=== PATIENT | male | born 1965 | race Caucasian/White ===

== ENCOUNTER 2020-10-28 23:40 | Emergency (ER) | payer BC, SELFPAY ==
--- NOTE | ~2020-10-28 | CT_ITS ---
EXAMINATION: CTA brain carotid DATE: 10/29/2020 00:45 INDICATION: Left-sided headache. Slurred speech. TECHNIQUE: Computed tomographic angiography (CTA) of the head was performed without and with 100 mL O mnipaque-350 intravenous contrast. CTA of the neck was performed with intravenous contrast. Automated exposure control and iterative reconstruction technique were employed. The dose-length product was 1 847.84 mGy-cm. Maximum intensity projection and volume rendered 3D-reconstructions were created by sary pate technologist on a separate workstation. COMPARISON: None. FINDINGS: HEAD CTA: There is an acute intraparenchymal hematoma in left temporal lobe with surrounding vasogeni c edema. There is no acute ischemic infarct. The ventricles are normal in size. There is mild mucosal thickening in the ethmoid sinuses. The mastoid air cells are normal. The orbits are normal. The vert ebral arteries are codominant. There is no significant stenosis of basilar artery or the posterior ce rebral arteries. There is no significant stenosis of the intracranial internal carotid arteries or an terior or middle cerebral arteries. Anterior communicating artery is normal. The posterior communicat ing arteries are normal. There is no aneurysm. NECK CTA: There is a 2.7 cm nodule in left thyroid lobe. There are no pathologically enlarged lymph n odes. There is no significant stenosis of the vertebral arteries. There is mild plaque in the proxima l internal carotid arteries with 0% stenosis relative to normal distal artery lumen diameters. There is mild cervical spondylosis. IMPRESSION: 1. Acute intraparenchymal hematoma in left temporal lobe. 2. No aneurysm, arteriovenous malformation, or significant intracranial arterial stenosis. 3. 0% stenosis of the proximal internal carotid arteries relative to normal distal artery lumen diame ters (NASCET criteria). 3. 2.7 cm left thyroid nodule. Thyroid ultrasound is recommended. Reviewed, dictated and finalized at location A. BING MACHINE CORDER IMPRESSION: 1. Acute intraparenchymal hematoma in left temporal lobe. 2. No aneurysm, arteriovenous malformation, or significant intracranial arteria l stenosis. 3. 0% stenosis of the proximal internal carotid arteries relative to normal dis nikunj artery lumen diameters (NASCET criteria). 3. 2.7 cm left thyroid nodule. Thyroid ultrasound is recommended.
[2020-10-28 23:49] VITALS: BP 145/93; PULSE 83; RESP 20; TEMP 36.9; O2SAT 97
[2020-10-29 00:14] LABS: Basophils Percent Auto 0.4 % (0.2-1.2); Eosinophils Absolute Auto 0.2 K/mm3 (0-0.3); Eosinophils Percent Auto 2.2 % (0-4.4); Hemoglobin 15.3 g/dL (14.0-18.0); Immature Granulocyte Absolute 0.01 K/mm3 (0.00-0.031); Immature Granulocyte Percent A 0.1 % (0-0.5); Lymphocytes Absolute Auto 2.84 K/mm3 (0.9-3.2); Lymphocytes Percent Auto 34.5 % (18.3-44.2); Mean Corpuscular HGB Conc 34.8 g/dl (32-36); Mean Corpuscular Hemoglobin 29.9 pg (26-34); Mean Corpuscular Volume 86.1 fl (80-100); Mean Platelet Volume 11.5 fl (7.4-10.4); Monocytes Absolute Auto 0.7 K/mm3 (0.1-0.6); Monocytes Percent Auto 8.6 % (2.6-8.5); Neutrophils Absolute Auto 4.5 K/mm3 (1.3-6.7); Neutrophils Percent Auto 54.2 % (45.5-73.1); Platelet Count Result 234 k/mm3 (150-375); Red Blood Count 5.11 M/mm3 (4.6-6.20); White Blood Count 8.2 K/mm3 (4.5-10.0)
[2020-10-29] MEDS: SODIUM CHLORIDE 0.9% IV 1,000 ML 999 ML IV CONT (00:16)
[2020-10-29] MEDS: diphenhydrAMINE HCl INJ 50 MG/ML VIAL IV PUSH (00:16)
[2020-10-29] MEDS: METOCLOPRAMIDE HCL INJ 10 MG/2 ML VIAL IV PUSH (00:16)
[2020-10-29 00:26] LABS: Alanine Aminotransferase 23 U/L (4-50); Alkaline Phosphatase 59 U/L (38-126); Anion Gap 9 mmol/L (8-16); Aspartate Amino Transferase 21 U/L (17-59); Bilirubin,Total 0.3 mg/dL (0.2-1.3); Blood Urea Nitrogen 18 mg/dL (9-20); Calcium 9.3 mg/dL (8.4-10.2); Carbon Dioxide 28 mmol/L (22-30); Chloride 101 mmol/L (98-107); Estimated CRCL calculation 94 ml/min; Estimated Glomerular Filt Rate > 60; Glucose 142 mg/dL (75-110); Potassium 3.7 mmol/L (3.4-5.0); Sodium 138 mmol/L (137-145)
--- NOTE | 2020-10-29 00:45 | ED.GENADULT ---
HPI - General Adult General Chief complaint: Headache Stated complaint: left sided headache, confusion, Time Seen by Provider: 10/28/20 23:44 History of Present Illness HPI narrative: Patient is a 54-year-old gentleman who presents emergency department with chief complaint of headache. Per the patient's the patient has been complaining of a headache this week and has noticed that occasionally he is having some garbled speech and repeating himself at times. They were concerned that he may have COVID-19 and he was swabbed for COVID-19 as an outpatient and had a negative test that resulted after that they were concerned that this may be something else and decided to bring the patient to the emergency department tonight it is primarily because they were asking the patient to follow directions and he was not quite following exactly what they were telling him whenever he was asked to cross his leg. Patient reports that he thinks this is may be secondary to him taking a lot of Mucinex because he has had a headache. Patient denies being on any anticoagulants denies head trauma. Related Data Home Medications Medication Instructions Recorded Confirmed omeprazole 40 mg PO DAILY 10/04/19 10/09/19 fluoxetine 20 mg PO DAILY 10/09/19 10/14/19 Allergies Allergy/AdvReac Type Severity Reaction Status Date / Time Sulfa (Sulfonamide Allergy Severe TEMPORARILY Verified 10/14/19 11:36 Antibiotics) LOST VISION sulfanilamide Allergy Unknown TEMP LOSS Verified 10/14/19 11:36 OF VISION WITH SULFA EYE MEDS Review of Systems Review of Systems: Narrative: CONSTITUTIONAL: Denies fever, chills, or sweats. EYES: Denies visual changes, redness, or discharge. ENT: Denies rhinorrhea, congestion, sore throat, or otalgia. CARDIOVASCULAR: Denies chest pain, palpitations, or edema. RESPIRATORY: Denies cough or dyspnea. GASTROINTESTINAL: Denies abdominal pain, nausea, vomiting, or diarrhea. GENITOURINARY: Denies dysuria or hematuria. SKIN: Denies rash or itching. MUSCULOSKELETAL: Denies back pain, joint pain, or myalgia. NEUROLOGIC: Denies headache, numbness, or weakness. PSYCHIATRIC: Denies anxiety or depression. A 10 system review of systems was completed on the patient and is negative except for what is stated in the HPI. Nursing and ancillary documentation was reviewed. [facility] Past Medical History Medical History Anxiety GERD (gastroesophageal reflux disease) Surgical History Surgical History Hx of arthroscopy of left knee Hx of esophagogastroduodenoscopy Hx of hemorrhoidectomy Hx of repair of right rotator cuff Hx of sinus surgery Hx of tonsillectomy Family History Family History Mother Lung cancer Grandparent Malignant neoplasm of prostate Other Hypertension Social History Social History Smoking status: Never smoker Alcohol intake: never Substance use: never Gender identity (if verbalized by the patient): Male Exam Narrative: Exam Narrative: GENERAL: Well-appearing, well-nourished, and in no acute distress. HEAD: Normocephalic, atraumatic. EYES: PERRLA and EOMI. ENT: Nares clear, no rhinorrhea or epistaxis. Mucous membranes moist. NECK: Supple. CHEST: Clear to auscultation. No respiratory distress. HEART: Regular rate and rhythm. No murmur heard. Normal peripheral pulses. ABDOMEN: Soft, nontender, nondistended, normal active bowel sounds. EXTREMITIES: Normal range of motion. No edema. SKIN: Warm, dry, no rash. NEURO: No focal deficits. Alert and oriented x3. PSYCH: Normal mood and affect. Course Course Emergency Course: CT had showed evidence of a 3.5 x 1.8 x 4.8 cm parenchymal hemorrhage in the left temporal lobe Given the findings of the CT t
[2020-10-29 00:52] VITALS: BP 133/79; PULSE 67; RESP 18; O2SAT 98
[2020-10-29 01:42] VITALS: BP 127/83; PULSE 58; RESP 18; O2SAT 100
--- NOTE | 2020-10-29 01:43 | PC.NURSE ---
pending transfer to [facility].
== END 2020-10-29 02:35 | disposition short-term general hospital (02) ==
PROVIDERS: Emergency Provider Emergency Medicine; PCP Emergency Medicine
DX: I61.8 Other nontraumatic intracerebral hemorrhage (principal); R51.9 Headache, unspecified; F41.9 Anxiety disorder, unspecified; K21.9 Gastro-esophageal reflux disease without esophagitis
CPT/HCPCS: 36415; 70496; 70498; 80053; 85025; 96361; 96374; 96375; 99291; J1200; J2765; J7030; Q9967

== ENCOUNTER 2021-01-25 12:49 | Outpatient (CLI) | payer BC, SELFPAY ==
--- NOTE | ~2021-01-25 | XR_ITS ---
XR sacroiliac joints min 3V DATE: 01/25/2021 13:15 INDICATION: Pelvic and sacroiliac pain TECHNIQUE: AP and bilateral oblique views COMPARISON: None FINDINGS: No fracture or dislocation or ankylosis at the sacroiliac joints. IMPRESSION: No significant abnormality of the sacroiliac joints Reviewed, dictated and finalized at Location [facility]. Reviewed, dictated and finalized at location A.
--- NOTE | ~2021-01-25 | XR_ITS ---
XR pelvis 1-2V DATE: 01/25/2021 13:15 INDICATION: Pelvic pain TECHNIQUE: AP view COMPARISON: None FINDINGS: No pelvic fracture or bone destruction. The pubic symphysis and sacroiliac joints are intac t. Mild left hip osteoarthritis.. IMPRESSION: No significant pelvic abnormality Reviewed, dictated and finalized at location A.
== END 2021-01-25 12:50 | disposition home or self-care (01) ==
LOC: ANHIMG 12:52
PROVIDERS: PCP Emergency Medicine; Visit Provider Physician Assistant Medical
DX: M25.59 Pain in other specified joint (principal)
CPT/HCPCS: 72170; 72202

== ENCOUNTER 2021-10-07 15:42 | Emergency (ER) | payer BC, SELFPAY ==
--- NOTE | ~2021-10-07 | XR_ITS ---
EXAMINATION: XR chest 1V portable 10/07/2021 16:15 INDICATION: Suspected CVA. Headache. Visual changes. PROCEDURE: AP portable chest COMPARISON: 07/10/2009 FINDINGS: The lungs are clear. The cardiomediastinal silhouette is within normal limits. There are no pleural effusions. There is no pneumothorax suspected. IMPRESSION: 1: NO ACUTE CARDIOPULMONARY DISEASE. Reviewed, dictated and finalized at location A. ORK CONTROL TECHNICIAN
--- NOTE | ~2021-10-07 | CT_ITS ---
EXAMINATION: CT brain wo con DATE: 10/07/2021 16:25 INDICATION: CVA. Headache. Previous intracranial hemorrhage. TECHNIQUE: Computed tomography (CT) of the head was performed without intravenous contrast. The dose- length product was 605.33 mGy-cm. Automated exposure control and iterative reconstruction technique w ere employed. COMPARISON: CT dated 10/29/2020 FINDINGS: There is chronic infarction of the left parietal lobe with encephalomalacia. No acute intra cranial hemorrhage, infarction, mass or mass effect. No ventriculomegaly or midline shift. Basilar ci sterns are patent. There is craniotomy defect of the left parietal skull. Paranasal sinuses and masto ids are pneumatized. IMPRESSION: 1. 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 2: No acute intracranial abnormality. Reviewed, dictated and finalized at location A. L CASKET ASSEMBLER
--- NOTE | 2021-10-07 16:03 | ECG_ITS ---
Measurements Intervals [place] Rate: 85 P: 43 [place]: 156 QRS: -4 QRSD: 106 T: 31 QT: 348 QTc: 415 Interpretive Statements SINUS RHYTHM BASELINE ARTIFACT- I, II, III, AVR, AVL, AVF, V3-V6 NORMAL ECG Electronically Signed On 10-07-2021 22:01:03 CANAL DRIVER by Matt Morton D.O.
[2021-10-07 16:04] VITALS: BP 132/92; PULSE 79; RESP 16; TEMP 36.8; O2SAT 100
[2021-10-07 16:05] VITALS: BP 122/87; PULSE 65; RESP 16; O2SAT 98
[2021-10-07 16:08] LABS: Glucose Point of Care 128 mg/dl (65-105)
[2021-10-07] MEDS: SODIUM CHLORIDE 0.9% IV 1,000 ML 999 ML IV CONT (16:23)
[2021-10-07 16:31] LABS: Basophils Percent Auto 0.3 % (0.2-1.2); Eosinophils Percent Auto 0.3 % (0-4.4); Hematocrit 42.4 % (42.0-52.0); Hemoglobin 14.8 g/dL (14.0-18.0); Immature Granulocyte Absolute 0.04 K/mm3 (0.00-0.031); Immature Granulocyte Percent A 0.4 % (0-0.5); Lymphocytes Absolute Auto 1.64 K/mm3 (0.9-3.2); Lymphocytes Percent Auto 17.6 % (18.3-44.2); Mean Corpuscular HGB Conc 34.9 g/dl (32-36); Mean Corpuscular Volume 88.9 fl (80-100); Mean Platelet Volume 12.4 fl (7.4-10.4); Monocytes Absolute Auto 0.5 K/mm3 (0.1-0.6); Monocytes Percent Auto 5.3 % (2.6-8.5); Neutrophils Absolute Auto 7.1 K/mm3 (1.3-6.7); Neutrophils Percent Auto 76.1 % (45.5-73.1); Platelet Count Result 202 k/mm3 (150-375); Red Blood Count 4.77 M/mm3 (4.6-6.20); Red Cell Distribution Width 12.4 % (11.5-14.5); White Blood Count 9.3 K/mm3 (4.5-10.0)
--- NOTE | 2021-10-07 16:35 | ED.NEUROSD ---
HPI - Neuro Symptoms/Deficit General Chief Complaint: Suspected CVA Stated Complaint: ?CVA Time Seen by Provider: 10/07/21 16:04 Source: patient History of Present Illness HPI Narrative: Patient presents with headache blurry vision. Headache started approximately an hour and a half ago there are no clear aggravating or relieving factors there is no radiation. Reports left upper extremity weakness however that is been present for years. 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 Related Data Home Medications Medication Instructions Recorded Confirmed omeprazole 40 mg PO DAILY 10/04/19 10/09/19 fluoxetine 20 mg PO DAILY 10/09/19 10/14/19 irbesartan mg 10/07/21 Allergies Allergy/AdvReac Type Severity Reaction Status Date / Time Sulfa (Sulfonamide Allergy Severe TEMPORARILY Verified 10/14/19 11:36 Antibiotics) LOST VISION sulfanilamide Allergy Unknown TEMP LOSS Verified 10/14/19 11:36 OF VISION WITH SULFA EYE MEDS Review of Systems Review of Systems: CONSTITUTIONAL: Denies fever, chills, or sweats. EYES: Denies visual changes, redness, or discharge. ENT: Denies rhinorrhea, congestion, sore throat, or otalgia. CARDIOVASCULAR: Denies chest pain, palpitations, or edema. RESPIRATORY: Denies cough or dyspnea. GASTROINTESTINAL: Denies abdominal pain, nausea, vomiting, or diarrhea. GENITOURINARY: Denies dysuria or hematuria. SKIN: Denies rash or itching. MUSCULOSKELETAL: Denies back pain, joint pain, or myalgia. NEUROLOGIC: Denies dizziness PSYCHIATRIC: Denies anxiety or depression. All systems reviewed & are unremarkable except as noted in HPI and below PMFSH Past Medical History Medical History Anxiety GERD (gastroesophageal reflux disease) Surgical History Surgical History Hx of arthroscopy of left knee Hx of esophagogastroduodenoscopy Hx of hemorrhoidectomy Hx of repair of right rotator cuff Hx of sinus surgery Hx of tonsillectomy Family History Family History Mother Lung cancer Grandparent Malignant neoplasm of prostate Other Hypertension Social History Social History Smoking status: Never smoker Alcohol intake: never Substance use: never Gender identity (if verbalized by the patient): Male Exam Narrative: GENERAL: Well-appearing, well-nourished, and in no acute distress. HEAD: Normocephalic, atraumatic. EYES: PERRLA and EOMI. ENT: Nares clear, no rhinorrhea or epistaxis. Mucous membranes moist. NECK: Supple. No masses. No JVD CHEST: Clear to auscultation. No respiratory distress. No wheezes rales or rhonchi HEART: Regular rate and rhythm. No murmur heard. Normal peripheral pulses. ABDOMEN: Soft, nontender, nondistended, normal active bowel sounds. EXTREMITIES: Normal range of motion. No edema. SKIN: Warm, dry, no rash. NEURO: Cranial nerves II through XII are intact patient has 5 out of 5 strength in all extremities sensation intact to light touch in all extremities no pronator drift alert and oriented x3. PSYCH: Normal mood and affect. Course Reevaluation(s) Reevaluation #1: Patient is feeling much improved and I symptoms have nearly completely resolved. Patient gave additional history since his AVM pathology in October of last year he has had intermittent headaches and today's was more severe so they came to the ER for evaluation Date: 10/07/21 Time: 17:10 Vital Signs Vital signs: Vital Signs Temperature 36.8 C 10/07/21 16:04 Pulse Rate 79 10/07/21 16:04 Respiratory Rate 16 10/07/21 16:04 Blood Pressure 132/92 H 10/07/21 16:04 Pulse Oximetry 100 10/07/21 16:04 Temperature 36.8 C 10/07/21 16:04 Pulse Rate 65 10/07/21 17:30 Respiratory Rate 16 10/07/21
[2021-10-07 16:40] LABS: Prothrombin Time 12.9 Seconds (11.1-14.7)
[2021-10-07 16:41] LABS: Partial Thromboplastin Time 27.9 SECONDS (22.3-36.8)
[2021-10-07 16:43] LABS: Alanine Aminotransferase 23 U/L (4-50); Albumin Level 4.5 g/dL (3.5-5.1); Alkaline Phosphatase 57 U/L (38-126); Anion Gap 6 mmol/L (8-16); Aspartate Amino Transferase 26 U/L (17-59); Bilirubin,Total 0.7 mg/dL (0.2-1.3); Blood Urea Nitrogen 13 mg/dL (9-20); Calcium 9.7 mg/dL (8.4-10.2); Carbon Dioxide 30 mmol/L (22-30); Chloride 100 mmol/L (98-107); Estimated CRCL calculation 93 ml/min; Estimated Glomerular Filt Rate > 60; Glucose 133 mg/dL (65-110); Potassium 4.1 mmol/L (3.4-5.0); Sodium 136 mmol/L (137-145)
[2021-10-07 16:47] LABS: Ethanol < 10 mg/dL (<10)
[2021-10-07 16:55] LABS: Troponin I < 0.012 ng/mL (0.000-0.034)
[2021-10-07 17:00] VITALS: BP 123/84; PULSE 65; RESP 16; O2SAT 98
[2021-10-07 17:30] VITALS: BP 122/87; PULSE 65; RESP 16; O2SAT 98
== END 2021-10-07 17:30 | disposition home or self-care (01) ==
PROVIDERS: Emergency Medicine; Emergency Provider Emergency Medicine; PCP Emergency Medicine
DX: R51.9 Headache, unspecified (principal); K21.9 Gastro-esophageal reflux disease without esophagitis; F41.9 Anxiety disorder, unspecified; G93.89 Other specified disorders of brain
CPT/HCPCS: 36415; 70450; 71045; 80053; 80307; 82948; 84484; 85025; 85610; 85730; 93005; 96360; 99284; J7030

== ENCOUNTER 2022-10-30 13:36 | Emergency (ER) | payer BC, SELFPAY ==
[2022-10-30 15:15] VITALS: BP 136/83; PULSE 83; RESP 18; TEMP 36.3; O2SAT 98
--- NOTE | 2022-10-30 15:56 | ED.GENADULT ---
HPI - General Adult General Chief complaint: Upper Respiratory Infection Stated complaint: Congestion,Cough Time Seen by Provider: 10/30/22 15:56 Source: patient Mode of arrival: ambulatory Limitations: no limitations History of Present Illness HPI narrative: 56-year-old male patient presents to the [facility] complains of 2 cough, congestion, fever, body aches and chills for the past 4 days. Patient states he did not get a influenza vaccine this year. Patient states he has not tested himself for COVID. Patient states that he feels like his cough is getting worse. Patient states he has been taking [id number] Mucinex. Denies any chest pain at this time. Denies shortness of breath. Denies any abdominal pain, nausea, vomiting or diarrhea. Related Data Home Medications Medication Instructions Recorded Confirmed omeprazole 40 mg capsule,delayed 40 mg PO DAILY 10/04/19 10/30/22 release fluoxetine 20 mg capsule 20 mg PO DAILY 10/09/19 10/30/22 irbesartan 150 mg tablet 150 mg PO DAILY 10/07/21 10/30/22 amitriptyline 10 mg tablet 10 mg PO DAILY 10/30/22 10/30/22 propranolol 80 mg capsule,24 80 mg PO DAILY 10/30/22 10/30/22 hr,extended release sumatriptan succinate 100 mg tablet 100 mg PO PRN PRN Migraine Headache 10/30/22 10/30/22 Allergies Allergy/AdvReac Type Severity Reaction Status Date / Time Sulfa (Sulfonamide AdvReac Severe TEMPORARILY Verified 10/30/22 15:54 Antibiotics) LOST VISION sulfanilamide AdvReac Severe TEMP LOSS Verified 10/30/22 15:54 OF VISION WITH SULFA EYE MEDS Review of Systems Review of Systems: CONSTITUTIONAL: positive fever, chills, And body aches, denies sweats. EYES: Denies visual changes, redness, or discharge. ENT: positive rhinorrhea, congestion, denies sore throat, or otalgia. CARDIOVASCULAR: Denies chest pain, palpitations, or edema. RESPIRATORY: positive cough, denies dyspnea. GASTROINTESTINAL: Denies abdominal pain, nausea, vomiting, or diarrhea. GENITOURINARY: Denies dysuria or hematuria. SKIN: Denies rash or itching. MUSCULOSKELETAL: Denies back pain, joint pain, or myalgia. NEUROLOGIC: Denies headache, numbness, or weakness. PSYCHIATRIC: Denies anxiety or depression. [facility] Past Medical History Medical History Anxiety GERD (gastroesophageal reflux disease) Surgical History Surgical History Hx of arthroscopy of left knee Hx of esophagogastroduodenoscopy Hx of hemorrhoidectomy Hx of repair of right rotator cuff Hx of sinus surgery Hx of tonsillectomy Family History Family History Mother Lung cancer Grandparent Malignant neoplasm of prostate Other Hypertension Social History Social History Smoking status: Never smoker Alcohol intake: never Substance use: never Gender identity (if verbalized by the patient): Male Comments At the time of my signature I agree with nursing past medical history, surgical, social, and family history. There is no relevant family history pertinent to the presenting complaint. Exam Narrative: GENERAL: Well-appearing, well-nourished, and in no acute distress. HEAD: Normocephalic, atraumatic. EYES: PERRLA and EOMI. ENT: Nares with erythema and edema noted bilaterally, no rhinorrhea or epistaxis. Mucous membranes moist. posterior pharynx with no erythema, tonsillar enlargement, exudates or lesions present. Bilateral TMs are clear with no erythema foreign bodies of the canal. NECK: Supple. No lymphadenopathy CHEST: Clear to auscultation. No respiratory distress. Patient able talk in clear complete sentences. No tripoding noted. HEART: Regular rate and rhythm. No murmur heard. Normal peripheral pulses. ABDOMEN: Soft, nontender, nondistended, normal active bowel sounds. EXTREMITI
== END 2022-10-30 16:13 | disposition home or self-care (01) ==
PROVIDERS: Emergency Provider Nurse Practitioner Family; PCP Emergency Medicine
DX: J06.9 Acute upper respiratory infection, unspecified (principal); K21.9 Gastro-esophageal reflux disease without esophagitis; F41.9 Anxiety disorder, unspecified
CPT/HCPCS: 99213; G0463

== ENCOUNTER 2023-09-27 15:36 | Outpatient (CLI) | payer BC, SELFPAY ==
--- NOTE | 2023-09-27 15:00 | ECG_ITS ---
Measurements Intervals [place] Rate: 66 P: 44 [place]: 178 QRS: -14 QRSD: 96 T: 10 QT: 357 QTc: 375 Interpretive Statements SINUS RHYTHM DELAYED PRECORDIAL R/S TRANSITION LOW QRS VOLTAGE IN PRECORDIAL LEADS BASELINE ARTIFACT- I, II, AVR BORDERLINE ECG COMPARED TO ECG 10/07/2021 16:08:30 NO SIGNIFICANT CHANGES Electronically Signed On 09-27-2023 16:20:35 PROJECT INTERNSHIP by Matt Morton D.O.
== END 2023-09-27 15:37 | disposition home or self-care (01) ==
PROVIDERS: PCP Emergency Medicine; Visit Provider Surgery
DX: Z01.812 Encounter for preprocedural laboratory examination (principal); Z01.810 Encounter for preprocedural cardiovascular examination; K43.2 Incisional hernia without obstruction or gangrene; I10 Essential (primary) hypertension
CPT/HCPCS: 36415; 86850; 86900; 86901; 93005

== ENCOUNTER 2023-09-29 00:41 | Day surgery (SDC) | payer BC, SELFPAY ==
[2023-09-25 15:14] VITALS: BMI 26.0
--- NOTE | 2023-09-25 15:20 | PC.NURSE ---
Report to the Outpatient Waiting Room, entrance under the green pavilion located off [facility], at time 6:00 on date 09/29/23. Planned Procedure Time: 7:30. Time changes happen often and if your time is changed the preop area will call you the afternoon before. - You and your visitor will be asked to self-screen and do not enter if you have any COVID symptoms. - A mask is optional within the hospital at this time. Patients may have clear liquids (water, carbonated beverages, clear teas, apple juice) until 3 hours prior to surgery (4:30) with a maximum of 20 ounces. - No food from midnight until time of surgery Take the following medications with a SIP of water the morning of surgery: NONE DO NOT STOP ANY OF YOUR OTHER PRESCRIPTION MEDICATIONS PRIOR TO SURGERY ?EXCEPT THE FOLLOWING Medications to discontinue per physician: N/A Date to take last dose: N/A Please no make-up, nail south korean, hairspray, perfume, deodorant, or body powder the day of surgery. No jewelry (including any body piercings) or valuables the day of surgery, leave them at home. Please take a shower or bath the night before, or the morning of, surgery with an antibacterial soap. Wear comfortable, loose fitting clothing. - Jewelry must be removed prior to entering the operating room. Rings and piercings that are not removed may be cut off. - The hospital will not accept responsibility for valuables. - Please leave all valuables, including medications, at home the day of surgery. If you are going home after surgery, a licensed courier delivery driver must drive you home. - NO public transportation without another adult if you receive anesthesia. - We recommend that an adult stay with you for 24 hours following discharge. - We also recommend that you do not drive, make important decision, drink alcoholic beverages, or take any drugs that were not prescribed by your health care provider for at least 24 hours after your discharge time. Follow any additional instructions given to you from your surgeon. If you or anyone in your household have experienced Covid symptoms in the past week, please notify your surgeon or the nurse liaison at the phone number below for possible testing. Telephone instructions given to PT - QUINTIN GARCIA and asked if any additional questions and then verbalized understanding. Patient advised to call surgeon office or pre surgery nurse liaison [phone] if any additional questions.
[2023-09-29] VITALS (9 sets, daily range): BP systolic 107–154; BP diastolic 60–87; PULSE 51–84; RESP 10–18; TEMP 36.3–36.4; O2SAT 98–100; BMI 23.4
--- NOTE | 2023-09-29 06:36 | WPDANESEPPF ---
Anes - Initial Pre Proc Eval Procedure: Operation Date: 09/29/23 07:30 Proposed Procedures p Robotic Assisted Laparoscopic Incisional Hernia Repair with Mesh - Arjun Meléndez MD Date/Time: 09/29/23 06:36 Surgeon: Arjun Meléndez MD Pre Op Diagnosis: reduceable incisional hernia Patient Data Age: 57 Gender: M Height: 1.93 m Weight: 97.1 kg Allergies Allergy/AdvReac Type Severity Reaction Status Date / Time Sulfa (Sulfonamide AdvReac Severe TEMPORARILY Verified 09/25/23 15:12 Antibiotics) LOST VISION sulfanilamide AdvReac Severe TEMP LOSS Verified 09/25/23 15:12 OF VISION WITH SULFA EYE MEDS Home Medications Medication Instructions Recorded Confirmed Type omeprazole 40 mg capsule,delayed 40 mg PO DAILY 10/04/19 09/25/23 History release irbesartan 150 mg tablet 150 mg PO DAILY 10/07/21 09/25/23 History sumatriptan succinate 100 mg tablet 100 mg PO PRN PRN Migraine Headache 10/30/22 09/25/23 History Patient hx anesthesia problems: none Family hx anesthesia problems: none Results Review: All pre-operative results and documents have been reviewed as part of the pre-operative evaluation. [facility], [facility] Past Medical History Medical History Anxiety Cancer of kidney GERD (gastroesophageal reflux disease) Stroke 2019 Surgical History Surgical History History of kidney surgery Hx of arthroscopy of left knee Hx of brain surgery Hx of esophagogastroduodenoscopy Hx of hemorrhoidectomy Hx of repair of right rotator cuff Hx of sinus surgery Hx of tonsillectomy Family History Family History Mother Lung cancer Grandparent Malignant neoplasm of prostate Other Hypertension Social History Social History Smoking status: Never smoker Alcohol intake: never Substance use: never Substance use type: does not use Living arrangements: with family Gender identity (if verbalized by the patient): Male Spiritual care concerns: No Anes - Eval Final PreProcedure Day of Procedure 09/29/23 06:36 Patient weight: overweight Heart: regular rate and rhythm Lungs: clear to auscultation Airway: Mallampati scale class II Neurological: alert and oriented Last oral intake: >/= 8 hours ASA classification: II Emergent: no Anesthetic plan: proceed Anesthesia type and monitoring: general ETT and standard monitoring Results Review: All pre-operative results and documents have been reviewed as part of the pre-operative evaluation. Informed Consent: The patient's anesthetic plan and its attendant risks and benefits were discussed with the patient/family/POA. Questions were solicited and answers provided to the satisfaction of the patient/family/POA.
[2023-09-29] MEDS: LACTATED RINGERS 1,000 ML 30 ML IV CONT ×2 (06:40→11:00)
--- NOTE | 2023-09-29 07:15 | SUR.PREOP ---
0715- Notified Dr. Meléndez patient has irritation to skin on lower abdomen to groin. Per patient he was performing yard work and shaved at home. Patient has bug bites from yard work and skin irritation from shaving. Dr. Meléndez assessed site with this RN and OK to proceed with surgery.
[2023-09-29] MEDS: ACETAMINOPHEN 500 MG TABLET 1000 MG PO (07:21)
--- NOTE | 2023-09-29 07:21 | PM.IMHP ---
H&P: HPI History of Present Illness Date/Time: 09/29/23 07:21 Chief Complaint: Reducible incisional hernia Narrative: Harpreet is a 57 y/o male who presents with a possible hernia at the request of Dr. Hsieh. He has a surgical history of laparoscopic nephrectomy for kidney cancer in 2019 but did not receive chemo or radiation. The surgical approach was anterior. He noticed a bulge at the mid epigastric incision site. It causes occasional discomfort. He is able to reduce the bulge. 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 Review of Systems Review of Systems: The remainder of the review of systems to include constitutional, HEENT, cardiovascular, respiratory, GI, , integumentary, musculoskeletal, endocrine, immunologic, hematologic, psychiatric, and neurologic are all negative except for which is mentioned above in the HPI. [facility] Past Medical History Medical History Anxiety Cancer of kidney GERD (gastroesophageal reflux disease) Stroke 2019 Surgical History Surgical History History of kidney surgery Hx of arthroscopy of left knee Hx of brain surgery Hx of esophagogastroduodenoscopy Hx of hemorrhoidectomy Hx of repair of right rotator cuff Hx of sinus surgery Hx of tonsillectomy Family History Family History Mother Lung cancer Grandparent Malignant neoplasm of prostate Other Hypertension Social History Social History Smoking status: Never smoker Alcohol intake: never Substance use: never Substance use type: does not use Living arrangements: with family Gender identity (if verbalized by the patient): Male Spiritual care concerns: No Meds Home Medications and Allergies Home Medications Medication Instructions Recorded Confirmed Type omeprazole 40 mg capsule,delayed 40 mg PO DAILY 10/04/19 09/25/23 History release irbesartan 150 mg tablet 150 mg PO DAILY 10/07/21 09/25/23 History sumatriptan succinate 100 mg tablet 100 mg PO PRN PRN Migraine Headache 10/30/22 09/25/23 History Allergies Allergy/AdvReac Type Severity Reaction Status Date / Time Sulfa (Sulfonamide AdvReac Severe TEMPORARILY Verified 09/25/23 15:12 Antibiotics) LOST VISION sulfanilamide AdvReac Severe TEMP LOSS Verified 09/25/23 15:12 OF VISION WITH SULFA EYE MEDS Exam Const: General: comfortable and no acute distress HENMT: Ears: TM's normal bilaterally Face/Nose/Sinus: Normal nares present Mouth: Yes moist mucous membranes Eyes: General: appearance normal, both eyes and all related structures Sclera: sclerae normal Pupils: Equal, round and reactive pupils present Neck: Neck: supple and no JVD Resp: Effort & Inspection: normal respiratory effort Auscultation: clear to auscultation bilaterally Cardio: Rate: regular rate Rhythm: regular rhythm GI: Other: Inspection: normal to inspection Palpation/Percussion: Yes non-tender, Yes no guarding and No Rebound tenderness present Other: 3x2 cm mid epigastric defect. Reducible with minimal tenderness. Skin: General skin exam: normal color Neuro: General: gait normal Speech: normal speech Motor exam (neuro): 5/5 motor strength present throughout Extrem: General: normal to inspection Psych: Mental Status: mental status grossly normal Affect: normal affect Assessment and Plan Assessment and plan (1) Incisional hernia without mention of obstruction or gangrene: Qualifiers: Obstruction and gangrene presence: without obstruction or gangrene Qualified Code(s): K43.2 - Incisional hernia without obstruction or gangrene Code(s): K43.2 - Incisional hernia without obstruction or gangrene Status: Acute Assessment and
[2023-09-29] MEDS: KETOROLAC 15 MG/ML VIAL (*BKC) IV PUSH (07:22)
--- NOTE | 2023-09-29 07:25 | WPDHPUPDATE1 ---
History and Physical Update Update Date/Time: 09/29/23 07:25 History and Physical has been reviewed, including an updated exam of the patient. There are NO changes in the patient's condition. Risks, benefits, and alternatives have been discussed and questions answered. Patient agrees to proceed with procedure.
[2023-09-29] MEDS: ceFAZolin 2 GM/D5W 50 ML 2 GM/50 ML BAG IVPB (07:32)
[2023-09-29] MEDS: LIDO 1%/EPINEPHRINE 1:100,000 20 ML VIAL 30 ML INFILTRATE (07:55)
--- NOTE | 2023-09-29 11:07 | W.PM.PROC2 ---
Procedure Note - Detailed Date of Procedure 09/29/23 Pre-op Diagnosis Reduceable incisional hernia Post-op Diagnosis Same Procedure Performed Robotic assisted laparoscopic reducible incisional hernia repair with transabdominal preperitoneal placement (RUKHSANA) of Bard soft mesh. Surgeon Arjun Meléndez MD Paper Pattern Inspector Csasy BELLA Anesthesia General Indications Patient is a 57-year-old gentleman who underwent a laparoscopic oophorectomy in the past at the extraction site in the mid abdominal region he developed an incisional hernia. He presents now for elective repair of the incisional hernia via robotic assisted laparoscopic approach with mesh. Findings Patient had 2 defects the 1st measuring about 1x1cm at the umbilicus and a 2nd defect in the mid epigastric region measuring 2x2cm. The distance the 2 defects was 10cm. Mild diastasis existed the midline fascia in the epigastric region. Description of Procedure After informed consent was obtained patient brought to the operating room was placed supine position and then general endotracheal anesthesia was administered. A Cervantes catheter was placed decompress the bladder and orogastric tube was placed decompress the stomach. The end was then prepped and draped usual sterile fashion. Time-out was then performed correctly identifying the patient as well as procedure to be performed verifying was given perioperative IV antibiotics. Enter the abdomen the left upper quadrant utilizing a 10mm Optiview port. Once inside the abdomen insufflated to adequate pneumoperitoneum of 15mmHg of CO2. There were no adhesions of the bowel or omentum to the undersurface anterior abdominal wall. There appeared to be a incisional hernia in the midepigastric region involving preperitoneal fat and a portion of the falciform ligament. Also a small umbilical hernia. I then placed additional robotic trocar ports in a left lateral abdominal wall under direct visualization. The Loretta robot was then brought to the patient's bedside and docked on the right side the patient's bed. Robotic arms were then docked to the robotic it ports. Robotic instruments were then advanced into the abdomen under direct visualization. I then scrubbed out the procedure sent down at the robotic console to perform the dissection robotically. I started to make a preperitoneal flap starting on the left side of the anterior abdominal wall and extending it with sharp robotic scissor dissection across the midline. It extended from the upper epigastric region all the way to the lower abdomen just below the umbilicus. As I continued the preperitoneal dissection the hernia sac was encountered and it was reduced without putting hold the hernia sac. The preperitoneal fat was also reduced. I created the preperitoneal plane until I felt I had at least 5cm of circumferential dissection around the defect. I then proceeded to close the defect utilizing a running #1 Stratafix PDS suture. The umbilical defect measured 1x1cm. The mid epigastric defect measured 2x2cm in diameter. The attenuated fascia between the 2 defects was 10cm. I then proceeded to close the defect with the above-mentioned #1 Stratafix suture her in a running fashion. FX closed easily. The attenuated fascia was plicated so that the diastasis was repaired as well. I then proceeded to choose a piece of mesh which was a [id number] piece of Bard soft mesh. Is placed into the abdomen and oriented in a ajay configuration along the longitudinal axis of the hernia repair. I then secured the mesh to the undersurface of the anterior abdominal wall with a running 2-0 absorbable V lock suture. I then trimmed off the excess lateral corners of the mesh with robotic bobby. The mesh still covered least 5cm of circumferential area beyond the closed defects. I then proceeded to close the peritoneal flap. This done with additional running 2-0 absorbable V lock sutures. I then proceeded to [employer] robot
[2023-09-29] MEDS: fentaNYL CITRATE INJ (*CRX) 100 MCG/2 ML VIAL 25 MCG IV PUSH ×4 (11:53→12:02)
[2023-09-29] MEDS: oxyCODONE HCL (*CRX) 5 MG TAB IR PO (13:01)
== END 2023-09-29 13:21 | disposition home or self-care (01) ==
PROVIDERS: PCP Emergency Medicine; Visit Provider Surgery
PROC: (CPT 49593; principal; 2023-09-29 07:30)
DX: K43.2 Incisional hernia without obstruction or gangrene (principal); K21.9 Gastro-esophageal reflux disease without esophagitis; Z86.73 Personal history of transient ischemic attack (TIA), and cerebral infarction without residual deficits; Z85.528 Personal history of other malignant neoplasm of kidney; Z90.5 Acquired absence of kidney
CPT/HCPCS: 49593; S2900; A9270; C1781; J0690; J1100; J1170; J1885; J2250; J2405; J2704; J3010; J7120